=== PATIENT | female | born 1980 | race Two or more races ===

== ENCOUNTER 2021-09-30 08:49 | Emergency (ER) | payer OTHER ==
[~2021-09-30] VITALS: Ht 152.4 cm; Wt 68.0 kg
[2021-09-30] MEDS ORDERED: ACETAMINOPHEN 325 MG TAB PO ONE (09:15)
[2021-09-30] MEDS ORDERED: IBUP800T27 PO (09:16)
[2021-09-30 09:32] VITALS: BP 144/68
== END 2021-09-30 11:05 | disposition home or self-care (01) ==
LOC: EDBD 08:49 → ER 08:49
DX: S46.912A Strain of unspecified muscle, fascia and tendon at shoulder and upper arm level, left arm, initial encounter (principal); V43.52XA Car driver injured in collision with other type car in traffic accident, initial encounter; Y93.89 Activity, other specified; Y92.410 Unspecified street and highway as the place of occurrence of the external cause; Y99.8 Other external cause status
CPT/HCPCS: 73030; 93005